=== PATIENT | male | born 1990 | race Caucasian/White ===

== ENCOUNTER 2018-09-29 20:04 | Inpatient (IN) | payer MEDICAID ==
--- NOTE | 2018-09-29 20:27 | ER Document Report ---
ED Medical Screen (RME) - General Chief Complaint: Rib Pain Stated Complaint: LUNG PAIN Time Seen by Provider: 09/29/18 20:18 Notes: Patient is a 27-year-old male history of pulmonary embolus on the left side presents to the emergency department with the pain in his right side of his chest. Patient states he recently drove from [place] to [place], states it was a [address] States he has had increased pain in the right lower chest for the last couple of days. Patient states "this feels just like when I had a PE." Patient's pulse oxygenation is noted to be 93% on room air. GENERAL: Alert, interacts well. No acute distress. LUNGS: Clear to auscultation bilaterally, no wheezes, rales, or rhonchi. No respiratory distress. HEART: Regular rate and rhythm. No murmur I have greeted and performed a rapid initial assessment of this patient. A comprehensive ED assessment and evaluation of the patient, analysis of test results and completion of the medical decision making process will be conducted by additional ED providers. I have specifically instructed the patient or family members with the patient to immediately return to any nursing staff should anything change in the patient's condition or with their chief complaint. This medical record was dictated with voice recognizing software. There may be grammatical, syntax errors that are unintended. TRAVEL OUTSIDE OF THE [place] IN LAST 30 DAYS: No Physical Exam - Vital signs Vitals: Temp Pulse BP Pulse Ox 98.2 F 92 117/66 93 09/29/18 20:12 09/29/18 20:12 09/29/18 20:12 09/29/18 20:12 Course - Vital Signs Vital signs: Temp Pulse Resp BP Pulse Ox 98.2 F 92 117/66 93 09/29/18 20:12 09/29/18 20:12 09/29/18 20:12 09/29/18 20:12
--- NOTE | 2018-09-29 20:40 | EKG REPORT ---
SEVERITY:- ABNORMAL ECG - SINUS RHYTHM ABNORMAL T, CONSIDER ISCHEMIA, INFERIOR LEADS : Confirmed by: Iris Williamson 29-Sep-2018 20:39:53
[2018-09-29 20:52] LABS: ABSOLUTE BASOPHILS # (AUTO) 0.1 10^3/uL (0.0-0.2); ABSOLUTE EOSINOPHILS # (AUTO) 0.1 10^3/uL (0.0-0.6); ABSOLUTE LYMPHOCYTES (AUTO) 1.8 10^3/uL (0.5-4.7); ABSOLUTE MONOCYTES (AUTO) 1.2 10^3/uL (0.1-1.4); ABSOLUTE NEUT (AUTO) 7.5 10^3/uL (1.7-8.2); BASOPHILS % (AUTO) 0.5 % (0-2); EOSINOPHILS % (AUTO) 0.7 % (0-6); HEMATOCRIT 41.9 % (37.9-51.0); HEMOGLOBIN 14.4 g/dL (13.5-17.0); LYMPHOCYTES % (AUTO) 16.9 % (13-45); MEAN CORPUSCULAR HEMOGLOBIN 31.1 pg (27.0-33.4); MEAN CORPUSCULAR HGB CONC 34.3 g/dL (32.0-36.0); MEAN CORPUSCULAR VOLUME 91 fl (80-97); MONOCYTES % (AUTO) 11.7 % (3-13); PLATELET COUNT 227 10^3/uL (150-450); RED BLOOD COUNT 4.62 10^6/uL (4.35-5.55); RED CELL DISTRIBUTION WIDTH 13.2 % (11.5-14.0); SEGMENTED NEUTROPHILS % (AUTO) 70.2 % (42-78); TOTAL CELLS COUNTED % (AUTO) 100 %; WHITE BLOOD COUNT 10.7 10^3/uL (4.0-10.5)
[2018-09-29 21:04] LABS: INTERNATIONAL RATION (INR) 1.07; PROTHROMBIN TIME 13.9 SEC (11.4-15.4)
[2018-09-29 21:10] LABS: ALANINE AMINOTRANSFERASE 32 U/L (21-72); ALBUMIN 4.3 g/dL (3.5-5.0); ALKALINE PHOSPHATASE 60 U/L (38-126); ANION GAP 8 (5-19); ASPARTATE AMINO TRANSFERASE 26 U/L (17-59); BILIRUBIN,DIRECT 0.3 mg/dL (0.0-0.4); BILIRUBIN,TOTAL 0.8 mg/dL (0.2-1.3); BLOOD UREA NITROGEN 16 mg/dL (7-20); CALCIUM 9.2 mg/dL (8.4-10.2); CARBON DIOXIDE 26 mmol/L (22-30); CHLORIDE 103 mmol/L (98-107); GLUCOSE 92 mg/dL (75-110); POTASSIUM 4.1 mmol/L (3.6-5.0); TOTAL PROTEIN 7.4 g/dL (6.3-8.2)
--- NOTE | 2018-09-29 21:25 | RADIOLOGY REPORT (SQ) ---
EXAM DESCRIPTION: CT CHEST ANGIOGRAPHY WITHOUT THEN WITH IV CONTRAST COMPLETED DATE/TME: 09/29/2018 20:23 CLINICAL HISTORY: 27 years, Male, right chest pain, h/o PE This exam was performed according to our departmental dose-optimization program which includes automated exposure control, adjustment of the mA and/or kVp according to patient size and/or use of iterative reconstruction technique where applicable. FINDINGS: Pulmonary arteries are mildly limited and opacification. There is a large filling defect in the right main pulmonary artery filling defects extend into the right lower lobe pulmonary arterial tree. Aorta is within normal limits with no aneurysm or dissection. No significant mediastinal, hilar or axillary lymphadenopathy. No pleural or pericardial effusions. Visualized upper abdominal organs are within normal limits. Evaluation of the lung parenchyma demonstrates trachea and major airways to be patent. Right lower lobe airspace disease consistent with probable infarct. No fibrotic changes. IMPRESSION: Extensive right-sided pulmonary arterial acute embolism. Probable right lower lobe infarct.
--- NOTE | 2018-09-29 21:47 | ER Document Report ---
ED Respiratory Problem - General Chief Complaint: Rib Pain Stated Complaint: LUNG PAIN Time Seen by Provider: 09/29/18 20:18 Notes: Patient is a 27-year-old male that comes emergency department for chief complaint of shortness of breath and pain along the right side of his chest and ribs. He started feeling the pain yesterday, started becoming notably short of breath today. He states pain is worse with deep inspiration. He does have a history of pulmonary embolism 2 years ago, was on Coumadin for 6 months, he is visiting from [place]. He recently drove down from [place], approximately [address] He smokes cigarettes and marijuana, reports occasional alcohol, denies occasional drugs otherwise. Denies medical history otherwise. States previous blood clot was from a DVT in his left calf, although the cause of this was uncertain. TRAVEL OUTSIDE OF THE [place] IN LAST 30 DAYS: No - Related Data Allergies/Adverse Reactions: No Known Allergies Allergy (Unverified 09/29/18 20:42) Past Medical History - General Information source: Patient - Social History Smoking Status: Current Every Day Smoker Chew tobacco use (# tins/day): No Frequency of alcohol use: Heavy Drug Abuse: Marijuana Lives with: Family Family History: Reviewed & Not Pertinent Patient has suicidal ideation: No Patient has homicidal ideation: No Renal/ Medical History: Denies: Hx Peritoneal Dialysis Review of Systems - Review of Systems Constitutional: No symptoms reported EENT: No symptoms reported Cardiovascular: No symptoms reported Respiratory: See HPI Gastrointestinal: No symptoms reported Genitourinary: No symptoms reported Male Genitourinary: No symptoms reported Musculoskeletal: No symptoms reported Skin: No symptoms reported Hematologic/Lymphatic: No symptoms reported Neurological/Psychological: No symptoms reported Physical Exam - Vital signs Vitals: Temp Pulse BP Pulse Ox 98.2 F 92 117/66 93 09/29/18 20:12 09/29/18 20:12 09/29/18 20:12 09/29/18 20:12 - Notes Notes: GENERAL: Alert, interacts well. HEAD: Normocephalic, atraumatic. EYES: Pupils equal, round, and reactive to light. Extraocular movements intact. ENT: Oral mucosa moist, tongue midline. Oropharynx unremarkable. Airway patent. LUNGS: Clear to auscultation bilaterally, no wheezes, rales, or rhonchi. No respiratory distress. Pain with deep inspiration. HEART: Mildly tachycardic on my exam, normal rhythm, no murmur ABDOMEN: Soft, non-tender. Non-distended. EXTREMITIES: Moves all 4 extremities spontaneously. No edema, normal radial and dorsalis pedis pulses bilaterally. No cyanosis. BACK: no cervical, thoracic, lumbar midline tenderness. No saddle anesthesia, normal distal neurovascular exam. Moves all extremities in full range of motion. NEUROLOGICAL: Alert and oriented x3. Normal speech. Cranial nerves II through XII grossly intact. PSYCH: Normal affect, normal mood. SKIN: Warm, dry, normal turgor. No rashes or lesions noted. Course - Re-evaluation Re-evalutation: Patient sitting up very straight, however he does not have tachypnea or signs of distress. Initial pulse oxygen saturation was 93% on room air. He is mildly tachycardic on my exam. He was placed on the monitor, he is no longer hypoxic sitting at rest. CBC, chemistry, troponin unremarkable. CT of the chest shows extensive right- sided pulmonary embolism with probable associated infarct area. Starting Lovenox. Patient has a lot of symptoms with exertion but is comfortable at [facility]. Patient is from out of town and has no local follow-up. Because of his hypoxia with exertion, the extensive clot, and lack of follow-up will discuss with hospitalist for admission. Patient and mother state understanding and agreement. Discussed with Dr. Aldrich, hospitalist, patient will be admitted to telemetry. - Vital Signs Vital signs: Temp Pulse Resp BP Pulse Ox 98.4 F 70 17 120/81 97 09/29/18 23:52 09/30/18 02:00 09/29/18 23:52 09/29/18 23:52 09/29/18 23:52 - Laboratory Result Diagrams: 09/29/18 20:46 09/30/18 05:17 Laboratory results interpreted by me: 09/29/18 20:46 WBC 10.7 H - EKG Interpretation by Me Additional EKG results interpreted by me: EKG shows sinus rhythm at a rate of 85, QTC of 424, MO interval of 144. Normal axis. Inverted T wave in lead III, borderline T wave in aVF. Otherwise unremarkable EKG with no ST segment changes. No comparison available. Some artifact is present. Discharge - Discharge Clinical Impression: Shortness of breath, Hypoxia Pulmonary embolism Qualifiers: Pulmonary embolism type: other Chronicity: acute Acute cor pulmonale presence: without acute cor pulmonale Qualified Code(s): I26.99 - Other pulmonary embolism without acute cor pulmonale Condition: Stable Disposition: ADMITTED INPATIENT Admitting Provider: Valdemar (Hospitalist) Unit Admitted: Telemetry
[2018-09-29] MEDS ORDERED: ENOXAPARIN SODIUM INJ 80 MG/0.8 ML DISP.SYRIN SUBCUT SCH (22:00)
[2018-09-29] MEDS ORDERED: ZOLPIDEM TARTRATE 5 MG TABLET PO PRN (23:01)
[2018-09-29] MEDS ORDERED: MAG HYDROX/AL HYDROX/SIMETH SUSP 30 ML UDCUP PO PRN (23:01)
[2018-09-29] MEDS ORDERED: ONDANSETRON HCL INJ/PF 4 MG/2 ML SDV IV PRN (23:01)
[2018-09-29 23:51] LABS: FREE T3 3.88 pg/mL (2.77-5.27); FREE T4 (FREE THYROXINE) 1.35 ng/dL (0.78-2.19)
[2018-09-30 00:05] LABS: THYROID STIMULATING HORMONE 1.05 uIU/mL (0.47-4.68)
[2018-09-30] MEDS ORDERED: HYDRALAZINE HCL INJ/PF 20 MG/1 ML SDV IV PRN (00:30)
[2018-09-30] MEDS ORDERED: NICOTINE 21 MG/24 HR PATCH.TD24 TD PRN (00:30)
[2018-09-30] MEDS ORDERED: WARFARIN SODIUM 5 MG TABLET PO ONE (00:30)
[2018-09-30] MEDS ORDERED: ACETAMINOPHEN 325 MG TABLET PO PRN (00:30)
--- NOTE | 2018-09-30 00:30 | PDOC H&P ---
History of Present Illness Admission Date/PCP: 09/29/2018 22:26 No local PCP Patient complains of: Dyspnea History of Present Illness: EUNICE GILLESPIE is a 27 year old male who presented to the emergency room with a 1 day history of dyspnea. He admits dyspnea beginning yesterday and worsening today. The dyspnea is worsened by exertion and is associated with the development of a constant moderate to severe, sharp, right lateral ribs and costal margin area chest pain without radiation, that is worsened by inspiration. He denies other associated or accompanying symptoms. He admits a recent long car trip, to this area, on which he drove 9 consecutive hours and smoked heavily. He admits a prior similar episode when he had a pulmonary embolism 2 years ago. He denies identification of any other aggravating or ameliorating factors for his dyspnea. In the emergency room he was found to have a CTA of the chest showing a large right-sided pulmonary embolus. Patient has been hemodynamically stable throughout his ER course but, his O2 sat does fall from 98% to 93-94% with modest activity. Patient was subsequently admitted for further evaluation and treatment. Past Medical History Cardiac Medical History: Reports: Pulmonary Embolism Denies: Atrial Fibrillation, Coronary Artery Disease, Myocardial Infarction, Hyperlipidema, Hypertension, Peripheral Vascular Disease Pulmonary Medical History: Denies: Asthma, Chronic Obstructive Pulmonary Disease (COPD), Respiratory Failure EENT Medical History: Denies: Cataracts, Ears - Hearing aids Neurological Medical History: Denies: Hemorrhagic CVA, Ischemic CVA, Multiple Sclerosis, Seizures Endocrine Medical History: Denies: Diabetes Mellitus Type 1, Diabetes Mellitus Type 2, Hyperthyroidism, Hypothyroidism, Obesity Renal/ Medical History: Denies: Chronic Kidney Disease, Nephrolithiasis Malignancy Medical History: Reports: None GI Medical History: Denies: Cirrhosis, Crohn's Disease, Hepatitis, Ulcerative Colitis Musculoskeltal Medical History: Denies: Arthritis, Gout Skin Medical History: Denies: Eczema, Psoriasis Psychiatric Medical History: Reports: Alcohol Dependency, Substance Abuse, Tobacco Dependency Traumatic Medical History: Reports: None Hematology: Denies: Anemia, Bleeding Tendencies Infectious Medical History: Reports: None Past Surgical History Past Surgical History: Reports: None Social History Information Source: Patient Lives with: Other - In town visiting his mother. Smoking Status: Current Every Day Smoker Cigarettes Packs Per Day: 1 Last Time Smoked: today Frequency of Alcohol Use: Heavy - Was drinking 6-8 beers per night until 1 week ago when he quit drinking altogether. Hx Recreational Drug Use: Yes Drugs: Marijuana Hx Prescription Drug Abuse: No - Advance Directive Resuscitation Status: Full Code Surrogate healthcare decision maker:: Isa Gillespie Family History Family History: Hypertension, Malignancy. denies: CAD, DM Parental Family History Reviewed: Yes Children Family History Reviewed: No Sibling(s) Family History Reviewed.: Yes Medication/Allergy Allergies/Adverse Reactions: No Known Allergies Allergy (Unverified 09/29/18 20:42) Review of Systems Constitutional: ABSENT: chills, fever(s) Eyes: ABSENT: visual disturbances, other - Eye pain Ears: ABSENT: hearing changes, other - Ear pain Nose, Mouth, and Throat: ABSENT: mouth pain, sore throat Cardiovascular: PRESENT: as per HPI, chest pain, dyspnea on exertion. ABSENT: edema, orthropnea, palpitations Respiratory: PRESENT: as per HPI, dyspnea. ABSENT: cough, hemoptysis Gastrointestinal: ABSENT: abdominal pain, constipation, diarrhea, nausea, vomiting Genitourinary: ABSENT: dysuria, hematuria Musculoskeletal: ABSENT: back pain, joint swelling, muscle weakness Integumentary: ABSENT: pruritus, rash Neurological: ABSENT: confusion, convulsions, focal weakness, memory loss, syncope Psychiatric: ABSENT: anxiety, depression Endocrine: ABSENT: cold intolerance, heat intolerance Hematologic/Lymphatic: ABSENT: easy bleeding, easy bruising Physical Exam Vital Signs: Temp Pulse Resp BP Pulse Ox 98.2 F 74 18 117/66 98 09/29/18 20:12 09/29/18 21:49 09/29/18 21:49 09/29/18 20:12 09/29/18 21:49 Intake & Output 09/27/18 09/28/18 09/29/18 23:59 23:59 23:59 Weight 81.647 kg General appearance: PRESENT: cooperative, severe distress - Secondary to right chest pain, well-developed Head exam: PRESENT: atraumatic, normocephalic Eye exam: PRESENT: conjunctiva pink. ABSENT: conjunctival injection, scleral icterus Ear exam: PRESENT: normal external ear exam. ABSENT: bleeding, drainage Mouth exam: PRESENT: dry mucosa, neck supple Neck exam: ABSENT: JVD, thyromegaly, tracheal deviation Respiratory exam: PRESENT: clear to auscultation malou, symmetrical, unlabored Cardiovascular exam: PRESENT: clicks, gallop, RRR, rubs Pulses: PRESENT: normal radial pulses, normal dorsalis pedis pul Vascular exam: PRESENT: normal capillary refill. ABSENT: pallor GI/Abdominal exam: PRESENT: normal bowel sounds, soft Rectal exam: PRESENT: deferred Extremities exam: ABSENT: joint swelling, pedal edema Musculoskeletal exam: PRESENT: full ROM, normal inspection. ABSENT: tenderness Neurological exam: PRESENT: alert, oriented to person, oriented to place, oriented to time, oriented to situation, CN II-XII grossly intact. ABSENT: motor sensory deficit Psychiatric exam: PRESENT: appropriate affect, normal mood Skin exam: PRESENT: dry, intact, warm. ABSENT: jaundice, rash, urticaria Results Laboratory Results: 09/29/18 20:46 09/29/18 20:46 09/29/18 09/29/18 20:46 20:46 WBC 10.7 H RBC 4.62 Hgb 14.4 Hct 41.9 MCV 91 MCH 31.1 MCHC 34.3 RDW 13.2 Plt Count 227 Seg Neutrophils % 70.2 Lymphocytes % 16.9 Monocytes % 11.7 Eosinophils % 0.7 Basophils % 0.5 Absolute Neutrophils 7.5 Absolute Lymphocytes 1.8 Absolute Monocytes 1.2 Absolute Eosinophils 0.1 Absolute Basophils 0.1 Sodium 137.0 Potassium 4.1 Chloride 103 Carbon Dioxide 26 Anion Gap 8 BUN 16 Creatinine 0.75 Est GFR ( Amer) > 60 Est GFR (Non-Af Amer) > 60 Glucose 92 Calcium 9.2 Total Bilirubin 0.8 AST 26 ALT 32 Alkaline Phosphatase 60 Total Protein 7.4 Albumin 4.3 09/29/18 20:46 Troponin I < 0.012 Impressions: Chest/Abdomen CTA 09/29/18 20:23 IMPRESSION: Extensive right-sided pulmonary arterial acute embolism. Probable right lower lobe infarct. Assessment and Plan - Diagnosis (1) Acute pulmonary embolism without acute cor pulmonale Qualifiers: Pulmonary embolism type: unspecified Qualified Code(s): I26.99 - Other pulmonary embolism without acute cor pulmonale Is this a current diagnosis for this admission?: Yes Plan: Patient is admitted to initiate anticoagulant therapy. He will receive Lovenox 85 mg subcutaneously every 12 hours and will be started on warfarin with daily laboratory evaluations of the patient's INR. The chest pain associated with his pulmonary embolism will be treated with morphine sulfate 2 to 4 mg IV every 2 h ours PRN basis via sliding scale. (2) Hypoxia Is this a current diagnosis for this admission?: Yes Plan: Patient will be treated with supplemental oxygen as required to maintain an adequate oxygenation saturation level. (3) Tobacco use disorder, severe, dependence Is this a current diagnosis for this admission?: Yes Plan: Smoking cessation has been advised and counseled briefly. A nicotine patch will be available for the patient's use. (4) Alcohol use disorder, mild, abuse Is this a current diagnosis for this admission?: Yes Plan: Alcohol use cessation has been advised. Patient will be observed closely for any signs of alcohol withdrawal. He will be treated prophylactically with Va lium 5 mg orally every 8 hours for the first 3 days of his hospital course. - Time Time Spent with patient: 25-34 minutes Smoking Cessation Education: 3 to 10 minutes Medications reviewed and adjusted accordingly: No - No medications Anticipated discharge: Home - Inpatient Certification Based on my medical assessment, after consideration of the patient's c omorbidities, presenting symptoms, or acuity I expect that the services needed warrant INPATIENT care.: Yes I certify that my determination is in accordance with my understanding of Medicare's requirements for reasonable and necessary INPATIENT services [42 CFR 412.3e].: Yes Medical Necessity: Need Close Monitoring Due to Risk of Patient Decompensation, Risk of Complication if Not Cared For in Hospital
[2018-09-30] MEDS ORDERED: DIAZEPAM 5 MG TABLET PO PRN (00:32)
[2018-09-30] MEDS: NALBUPHINE HCL INJ 10 MG/1 ML AMPULE IV PRN ×6 (00:43→23:49)
--- NOTE | 2018-09-30 00:44 | ADVANCED CARE ---
- Diagnosis (1) Acute pulmonary embolism without acute cor pulmonale Diagnosis Current: Yes (2) Hypoxia Diagnosis Current: Yes (3) Tobacco use disorder, severe, dependence Diagnosis Current: Yes (4) Alcohol use disorder, mild, abuse Diagnosis Current: Yes Attendance: The patient and myself. Resuscitation Status: Full Code Discussion: After brief discussion patient indicated that he wishes to remain full code for resuscitation status during this hospitalization. Additionally he has named Isa Huizar as his designated surrogate medical decision-maker. Care Planning Goals: 1. Patient will be full CODE STATUS for the remainder of this admission. 2. Isa Huizar is a patient's designated surrogate medical decision-maker. Document(s) Completed: The following entries were made into the patient's permanent medical record, current medical record and current medical orders via EMR entry: 1. Patient will be full CODE STATUS for the remainder of this admission. 2. Isa Huizar is a patient's designated surrogate medical decision-maker. Time Spent: 4 minutes
[2018-09-30] MEDS: IBUPROFEN 800 MG TABLET PO PRN ×4 (01:01→23:49)
[2018-09-30 06:01] LABS: HEMATOCRIT 39.8 % (37.9-51.0); HEMOGLOBIN 13.6 g/dL (13.5-17.0); MEAN CORPUSCULAR HEMOGLOBIN 31.5 pg (27.0-33.4); MEAN CORPUSCULAR HGB CONC 34.1 g/dL (32.0-36.0); MEAN CORPUSCULAR VOLUME 92 fl (80-97); PLATELET COUNT 200 10^3/uL (150-450); RED BLOOD COUNT 4.32 10^6/uL (4.35-5.55); WHITE BLOOD COUNT 9.3 10^3/uL (4.0-10.5)
[2018-09-30 06:09] LABS: INTERNATIONAL RATION (INR) 1.07; PROTHROMBIN TIME 13.9 SEC (11.4-15.4)
[2018-09-30 06:10] LABS: PARTIAL THROMBOPLASTIN TIME 36.1 SEC (23.5-35.8)
[2018-09-30 06:19] LABS: ANION GAP 7 (5-19); BLOOD UREA NITROGEN 16 mg/dL (7-20); CALCIUM 9.2 mg/dL (8.4-10.2); CARBON DIOXIDE 28 mmol/L (22-30); CHLORIDE 105 mmol/L (98-107); GLUCOSE 93 mg/dL (75-110); POTASSIUM 4.1 mmol/L (3.6-5.0)
[2018-09-30] MEDS: DOCUSATE SODIUM 100 MG CAPSULE PO SCH ×2 (10:30→17:15)
[2018-09-30] MEDS: ENOXAPARIN SODIUM INJ 80 MG/0.8 ML DISP.SYRIN SUBCUT SCH ×2 (10:30→21:04)
[2018-09-30] MEDS: FAMOTIDINE 20 MG TABLET PO SCH ×2 (10:30→21:04)
--- NOTE | 2018-09-30 11:11 | Progress Note Acknowledgement ---
Progress Note Acknowledgement Progess Note Acknowledgement: I, the undersigned member of the medical staff with appropriate privileges and with supervisory authority over [ [facility] a [facility] practice allied health professional, acknowledge that I have reviewed the progress notes entered on this patient, and in my professional judgment believe that the assessment made and/or any care evidenced was appropriate
--- NOTE | 2018-09-30 11:16 | PDOC PROGRESS REPORT ---
Subjective Progress Note for:: 09/30/18 Subjective:: 09/30/2018 patient is feeling much less short of breath than on admission. Patient states he is able to talk in full sentences. Patient is complaining of some right-sided chest wall pain. Patient was on Coumadin a couple years ago for previous PE. Patient has had 1 dose of Nubain and 1 dose of Motrin for his right-sided chest wall pain. Patient appears to be medically stable. Reason For Visit: ACUTE PULMONARY EMBOLISM Physical Exam Vital Signs: Temp Pulse Resp BP Pulse Ox 97.6 F 68 16 113/82 97 09/30/18 07:26 09/30/18 07:26 09/30/18 07:26 09/30/18 07:26 09/30/18 07:26 Intake & Output 09/29/18 09/30/18 10/01/18 06:59 06:59 06:59 Intake Total 430 Output Total 0 Balance 430 Weight 81.2 kg General appearance: PRESENT: no acute distress, well-developed, well-nourished Head exam: PRESENT: atraumatic, normocephalic Respiratory exam: PRESENT: clear to auscultation malou, other - Decreased breath sounds right middle lobe and right lower lobe. ABSENT: rales, rhonchi, wheezes Cardiovascular exam: PRESENT: RRR. ABSENT: diastolic murmur, rubs, systolic murmur Neurological exam: PRESENT: alert, awake, oriented to person, oriented to place, oriented to time, oriented to situation, CN II-XII grossly intact. ABSENT: motor sensory deficit Psychiatric exam: PRESENT: appropriate affect, normal mood, other - Pleasant. ABSENT: homicidal ideation, suicidal ideation Results Laboratory Results: 09/30/18 05:17 09/30/18 05:17 09/29/18 09/29/18 09/29/18 20:46 20:46 20:46 WBC 10.7 H RBC 4.62 Hgb 14.4 Hct 41.9 MCV 91 MCH 31.1 MCHC 34.3 RDW 13.2 Plt Count 227 Seg Neutrophils % 70.2 Lymphocytes % 16.9 Monocytes % 11.7 Eosinophils % 0.7 Basophils % 0.5 Absolute Neutrophils 7.5 Absolute Lymphocytes 1.8 Absolute Monocytes 1.2 Absolute Eosinophils 0.1 Absolute Basophils 0.1 Sodium 137.0 Potassium 4.1 Chloride 103 Carbon Dioxide 26 Anion Gap 8 BUN 16 Creatinine 0.75 Est GFR ( Amer) > 60 Est GFR (Non-Af Amer) > 60 Glucose 92 Calcium 9.2 Magnesium Total Bilirubin 0.8 AST 26 ALT 32 Alkaline Phosphatase 60 Total Protein 7.4 Albumin 4.3 TSH 1.05 Free T4 1.35 Free T3 pg/mL 3.88 09/30/18 09/30/18 05:17 05:17 WBC 9.3 RBC 4.32 L Hgb 13.6 Hct 39.8 MCV 92 MCH 31.5 MCHC 34.1 RDW 13.0 Plt Count 200 Seg Neutrophils % Lymphocytes % Monocytes % Eosinophils % Basophils % Absolute Neutrophils Absolute Lymphocytes Absolute Monocytes Absolute Eosinophils Absolute Basophils Sodium 139.8 Potassium 4.1 Chloride 105 Carbon Dioxide 28 Anion Gap 7 BUN 16 Creatinine 0.74 Est GFR ( Amer) > 60 Est GFR (Non-Af Amer) > 60 Glucose 93 Calcium 9.2 Magnesium 2.5 H Total Bilirubin AST ALT Alkaline Phosphatase Total Protein Albumin TSH Free T4 Free T3 pg/mL 09/29/18 20:46 Troponin I < 0.012 Impressions: Chest/Abdomen CTA 09/29/18 20:23 IMPRESSION: Extensive right-sided pulmonary arterial acute embolism. Probable right lower lobe infarct. Assessment and Plan - Diagnosis (1) Acute pulmonary embolism without acute cor pulmonale Qualifiers: Pulmonary embolism type: unspecified Qualified Code(s): I26.99 - Other pulmonary embolism without acute cor pulmonale Is this a current diagnosis for this admission?: Yes Plan: Patient is admitted to initiate anticoagulant therapy. He will receive Lovenox 85 mg subcutaneously every 12 hours and will be started on warfarin with daily laboratory evaluations of the patient's INR. The chest pain associated with his pulmonary embolism will be treated with morphine sulfate 2 to 4 mg IV every 2 hours PRN basis via sliding scale. 09/30/2018 patient is being treated with both Lovenox and Coumadin INR was subtherapeutic this morning patient is currently on 5 mg nightly Patient has no complaints at this time (2) Alcohol use disorder, mild, abuse Is this a current diagnosis for this admission?: Yes Plan: Alcohol use cessation has been advised. Patient will be observed closely for any signs of alcohol withdrawal. He will be treated prophylactically with Valium 5 mg orally every 8 hours for the first 3 days of his hospital course. 09/30/2018 patient has no complaints no nausea no vomiting no tremors no headache (3) Tobacco use disorder, severe, dependence Is this a current diagnosis for this admission?: Yes Plan: Smoking cessation has been advised and counseled briefly. A nicotine patch will be available for the patient's use. 09/30/2018 She did not complain of nicotine withdrawals. - Time Time Spent with patient: 15-24 minutes
[2018-09-30] MEDS ORDERED: WARFARIN SODIUM 5 MG TABLET PO SCH (22:00)
[2018-10-01] MEDS: NALBUPHINE HCL INJ 10 MG/1 ML AMPULE IV PRN ×5 (04:06→20:59)
[2018-10-01 04:57] LABS: HEMATOCRIT 39.1 % (37.9-51.0); HEMOGLOBIN 13.1 g/dL (13.5-17.0); MEAN CORPUSCULAR HEMOGLOBIN 31.4 pg (27.0-33.4); MEAN CORPUSCULAR HGB CONC 33.6 g/dL (32.0-36.0); MEAN CORPUSCULAR VOLUME 94 fl (80-97); PLATELET COUNT 235 10^3/uL (150-450); RED BLOOD COUNT 4.18 10^6/uL (4.35-5.55); WHITE BLOOD COUNT 8.6 10^3/uL (4.0-10.5)
[2018-10-01 05:11] LABS: INTERNATIONAL RATION (INR) 1.16; PROTHROMBIN TIME 14.9 SEC (11.4-15.4)
[2018-10-01 05:17] LABS: ANION GAP 9 (5-19); BLOOD UREA NITROGEN 15 mg/dL (7-20); CALCIUM 9.1 mg/dL (8.4-10.2); CARBON DIOXIDE 29 mmol/L (22-30); CHLORIDE 103 mmol/L (98-107); GLUCOSE 116 mg/dL (75-110); POTASSIUM 4.3 mmol/L (3.6-5.0)
[2018-10-01] MEDS: IBUPROFEN 800 MG TABLET PO PRN ×2 (07:29→13:32)
[2018-10-01] MEDS: FAMOTIDINE 20 MG TABLET PO SCH ×2 (09:09→21:00)
[2018-10-01] MEDS: ENOXAPARIN SODIUM INJ 80 MG/0.8 ML DISP.SYRIN SUBCUT SCH ×2 (09:09→21:00)
[2018-10-01] MEDS: DOCUSATE SODIUM 100 MG CAPSULE PO SCH ×2 (09:09→16:45)
[2018-10-01 11:01] LABS: APPEARANCE,URINE CLEAR; BILIRUBIN,URINE NEGATIVE (NEGATIVE); COLOR,URINE YELLOW; GLUCOSE, URINE NEGATIVE (NEGATIVE); KETONES,URINE NEGATIVE (NEGATIVE); LEUKOCYTE ESTERASE,URINE NEGATIVE (NEGATIVE); NITRITE,URINE NEGATIVE (NEGATIVE); PROTEIN,URINE NEGATIVE (NEGATIVE); UROBILINOGEN,URINE NEGATIVE mg/dL (<2.0)
--- NOTE | 2018-10-01 13:58 | Progress Note Acknowledgement ---
Progress Note Acknowledgement Progess Note Acknowledgement: I, the undersigned member of the medical staff with appropriate privileges and with supervisory authority over [ [facility] ], a dependent practice allied health professional, acknowledge that I have reviewed the progress notes entered on this patient, and in my professional judgment believe that the assessment made and/or any care evidenced was appropriate
[2018-10-01] MEDS: CYCLOBENZAPRINE HCL 10 MG TABLET PO PRN ×2 (14:49→23:08)
[2018-10-01] MEDS: KETOROLAC TROMETHAMINE INJ/PF 30 MG/1 ML SDV IV PRN ×2 (14:49→23:08)
[2018-10-01] MEDS: WARFARIN SODIUM 7.5 MG TABLET PO SCH (21:00)
[2018-10-02] MEDS: NALBUPHINE HCL INJ 10 MG/1 ML AMPULE IV PRN ×5 (03:11→21:14)
[2018-10-02 05:15] LABS: HEMOGLOBIN 13.1 g/dL (13.5-17.0); MEAN CORPUSCULAR HEMOGLOBIN 31.2 pg (27.0-33.4); MEAN CORPUSCULAR HGB CONC 33.7 g/dL (32.0-36.0); MEAN CORPUSCULAR VOLUME 92 fl (80-97); PLATELET COUNT 223 10^3/uL (150-450); RED BLOOD COUNT 4.22 10^6/uL (4.35-5.55); RED CELL DISTRIBUTION WIDTH 12.9 % (11.5-14.0); WHITE BLOOD COUNT 11.3 10^3/uL (4.0-10.5)
[2018-10-02 05:23] LABS: INTERNATIONAL RATION (INR) 1.27
[2018-10-02 05:24] LABS: PARTIAL THROMBOPLASTIN TIME 43.8 SEC (23.5-35.8)
[2018-10-02 05:44] LABS: ANION GAP 11 (5-19); BLOOD UREA NITROGEN 16 mg/dL (7-20); CALCIUM 9.2 mg/dL (8.4-10.2); CARBON DIOXIDE 26 mmol/L (22-30); CHLORIDE 102 mmol/L (98-107); GLUCOSE 97 mg/dL (75-110); POTASSIUM 4.4 mmol/L (3.6-5.0)
[2018-10-02] MEDS: KETOROLAC TROMETHAMINE INJ/PF 30 MG/1 ML SDV IV PRN ×2 (08:11→16:41)
[2018-10-02] MEDS: CYCLOBENZAPRINE HCL 10 MG TABLET PO PRN ×2 (08:11→16:41)
[2018-10-02] MEDS: FAMOTIDINE 20 MG TABLET PO SCH ×2 (09:17→21:06)
[2018-10-02] MEDS: DOCUSATE SODIUM 100 MG CAPSULE PO SCH ×2 (09:17→17:44)
[2018-10-02] MEDS: ENOXAPARIN SODIUM INJ 80 MG/0.8 ML DISP.SYRIN SUBCUT SCH ×2 (09:17→21:06)
[2018-10-02 13:18] LABS: INTERNATIONAL RATION (INR) 1.38
[2018-10-02] MEDS: MAGNESIUM HYDROXIDE SUSP 30 ML UDCUP PO PRN (17:44)
[2018-10-02] MEDS: WARFARIN SODIUM 7.5 MG TABLET PO SCH (21:05)
[2018-10-03] MEDS: CYCLOBENZAPRINE HCL 10 MG TABLET PO PRN ×2 (00:56→18:36)
[2018-10-03] MEDS: KETOROLAC TROMETHAMINE INJ/PF 30 MG/1 ML SDV IV PRN ×3 (00:57→18:21)
[2018-10-03] MEDS: NALBUPHINE HCL INJ 10 MG/1 ML AMPULE IV PRN ×5 (00:57→21:55)
[2018-10-03] MEDS: DOCUSATE SODIUM 100 MG CAPSULE PO SCH ×2 (09:03→18:21)
[2018-10-03] MEDS: MAGNESIUM HYDROXIDE SUSP 30 ML UDCUP PO PRN (09:04)
[2018-10-03] MEDS: ENOXAPARIN SODIUM INJ 80 MG/0.8 ML DISP.SYRIN SUBCUT SCH ×2 (09:04→21:04)
[2018-10-03] MEDS: FAMOTIDINE 20 MG TABLET PO SCH ×2 (09:04→21:05)
--- NOTE | 2018-10-03 13:18 | PDOC PROGRESS REPORT ---
Subjective Progress Note for:: 10/03/18 Subjective:: 09/30/2018 patient is feeling much less short of breath than on admission. Patient states he is able to talk in full sentences. Patient is complaining of some right-sided chest wall pain. Patient was on Coumadin a couple years ago for previous PE. Patient has had 1 dose of Nubain and 1 dose of Motrin for his right-sided chest wall pain. Patient appears to be medically stable. 10/01/2018 Patient is complaining of chest wall pain with inspiration expiration or movement this is all right-sided. Patient does not appear to be hypoxic and in fact O2 sats are 99 on room air blood pressure is normal, labs are normal. Patient is currently being treated with Lovenox and Coumadin graft I have added Flexeril for the muscle spasm and tightness of his chest wall, Toradol as needed for the pain DC the Motrin. As soon is patient's INR starts to increase we will discuss discharge 10/02/2018 patient is feeling much better today less chest wall pain less muscle spasm. INR is going up to 1.27 he is at 7.5 mg nightly Coumadin otherwise labs are stable patient is eating well, vital signs are stable anticipate discharge in the next 1 to 2 days 10/03/2018 she has no complaints yesterday's INR was up to 1.38 today after just calling the lab it is pending. If it still low tonight and when giving Coumadin 10 mg. Toradol and Flexeril are helping his pain he plans to go back to [place] will be discharging him and be seen by his regular doctor within the next 48 hours of arrival. No shortness of breath no chest pain Reason For Visit: ACUTE PULMONARY EMBOLISM Physical Exam Vital Signs: Temp Pulse Resp BP Pulse Ox 98.9 F 75 16 119/71 96 10/03/18 07:29 10/03/18 07:29 10/03/18 07:29 10/03/18 07:29 10/03/18 07:29 Intake & Output 10/02/18 10/03/18 10/04/18 06:59 06:59 06:59 Intake Total 596 Balance 596 Weight 80.3 kg 81 kg General appearance: PRESENT: no acute distress, well-developed, well-nourished Respiratory exam: PRESENT: clear to auscultation malou. ABSENT: rales, rhonchi, wheezes Cardiovascular exam: PRESENT: RRR. ABSENT: diastolic murmur, rubs, systolic murmur GI/Abdominal exam: PRESENT: normal bowel sounds, soft. ABSENT: distended, guarding, mass, organolmegaly, rebound, tenderness Extremities exam: PRESENT: full ROM. ABSENT: calf tenderness, clubbing, pedal edema Neurological exam: PRESENT: alert, awake, oriented to person, oriented to place, oriented to time, oriented to situation, CN II-XII grossly intact. ABSENT: motor sensory deficit Psychiatric exam: PRESENT: appropriate affect, normal mood. ABSENT: homicidal ideation, suicidal ideation Results Laboratory Results: 10/02/18 04:36 10/02/18 04:36 09/29/18 20:46 Troponin I < 0.012 Impressions: Chest/Abdomen CTA 09/29/18 20:23 IMPRESSION: Extensive right-sided pulmonary arterial acute embolism. Probable right lower lobe infarct. Assessment and Plan - Diagnosis (1) Acute pulmonary embolism without acute cor pulmonale Qualifiers: Pulmonary embolism type: unspecified Qualified Code(s): I26.99 - Other pulmonary embolism without acute cor pulmonale Is this a current diagnosis for this admission?: Yes Plan: Patient is admitted to initiate anticoagulant therapy. He will receive Lovenox 85 mg subcutaneously every 12 hours and will be started on warfarin with daily laboratory evaluations of the patient's INR. The chest pain associated with his pulmonary embolism will be treated with morphine sulfate 2 to 4 mg IV every 2 hours PRN basis via sliding scale. 09/30/2018 patient is being treated with both Lovenox and Coumadin INR was subtherapeutic this morning patient is currently on 5 mg nightly Patient has no complaints at this time 10/01/2018 patient is on Lovenox and Coumadin, PT/INR PTT are checked daily. 10/02/2018 patient's Coumadin was increased yesterday to 7.5 mg daily, INR today is 1.27. 10/03/2018 if INR is still low today we will increase to 10 mg of Coumadin. Chest pain is better with Toradol and Flexeril patient does have some hemoptysis (2) Alcohol use disorder, mild, abuse Is this a current diagnosis for this admission?: No (3) Tobacco use disorder, severe, dependence Is this a current diagnosis for this admission?: Yes Plan: Smoking cessation has been advised and counseled briefly. A nicotine patch will be available for the patient's use. 09/30/2018 he did not complain of nicotine withdrawal. 10/01/2018 patient has not asked for NicoDerm patch or to go outside and smoke 10/03/2018. Patient is on NicoDerm patch now - Time Time Spent with patient: 15-24 minutes
[2018-10-03 13:21] LABS: INTERNATIONAL RATION (INR) 1.46; PROTHROMBIN TIME 17.8 SEC (11.4-15.4)
[2018-10-03] MEDS ORDERED: WARFARIN SODIUM 3 MG TABLET PO SCH (22:00)
[2018-10-04] MEDS: NALBUPHINE HCL INJ 10 MG/1 ML AMPULE IV PRN ×2 (02:47→09:13)
[2018-10-04] MEDS: KETOROLAC TROMETHAMINE INJ/PF 30 MG/1 ML SDV IV PRN (02:47)
[2018-10-04] MEDS: CYCLOBENZAPRINE HCL 10 MG TABLET PO PRN (02:48)
[2018-10-04 05:46] LABS: INTERNATIONAL RATION (INR) 1.58
[2018-10-04 06:43] LABS: APPEARANCE,URINE CLEAR; BILIRUBIN,URINE NEGATIVE (NEGATIVE); COLOR,URINE YELLOW; GLUCOSE, URINE NEGATIVE (NEGATIVE); KETONES,URINE NEGATIVE (NEGATIVE); LEUKOCYTE ESTERASE,URINE NEGATIVE (NEGATIVE); NITRITE,URINE NEGATIVE (NEGATIVE); PROTEIN,URINE NEGATIVE (NEGATIVE); URINE SPECIFIC GRAVITY 1.015; UROBILINOGEN,URINE NEGATIVE mg/dL (<2.0)
--- NOTE | 2018-10-04 06:45 | PDOC PROGRESS REPORT ---
Subjective Progress Note for:: 10/02/18 Subjective:: 09/30/2018 patient is feeling much less short of breath than on admission. Patient states he is able to talk in full sentences. Patient is complaining of some right-sided chest wall pain. Patient was on Coumadin a couple years ago for previous PE. Patient has had 1 dose of Nubain and 1 dose of Motrin for his right-sided chest wall pain. Patient appears to be medically stable. 10/01/2018 Patient is complaining of chest wall pain with inspiration expiration or movement this is all right-sided. Patient does not appear to be hypoxic and in fact O2 sats are 99 on room air blood pressure is normal, labs are normal. Patient is currently being treated with Lovenox and Coumadin graft I have added Flexeril for the muscle spasm and tightness of his chest wall, Toradol as needed for the pain DC the Motrin. As soon is patient's INR starts to increase we will discuss discharge 10/02/2018 patient is feeling much better today less chest wall pain less muscle spasm. INR is going up to 1.27 he is at 7.5 mg nightly Coumadin otherwise labs are stable patient is eating well, vital signs are stable anticipate discharge in the next 1 to 2 days Reason For Visit: ACUTE PULMONARY EMBOLISM Physical Exam Vital Signs: Temp Pulse Resp BP Pulse Ox 99.4 F 93 16 121/74 98 10/02/18 07:20 10/02/18 07:20 10/02/18 07:20 10/02/18 07:20 10/02/18 07:20 Intake & Output 10/01/18 10/02/18 10/03/18 06:59 06:59 06:59 Intake Total 720 596 Balance 720 596 Weight 80.3 kg 80.3 kg General appearance: PRESENT: no acute distress, well-developed, well-nourished Respiratory exam: PRESENT: clear to auscultation malou. ABSENT: rales, rhonchi, wheezes Cardiovascular exam: PRESENT: RRR. ABSENT: diastolic murmur, rubs, systolic murmur Neurological exam: PRESENT: alert, awake, oriented to person, oriented to place, oriented to time, oriented to situation, CN II-XII grossly intact. ABSENT: motor sensory deficit Psychiatric exam: PRESENT: appropriate affect, normal mood. ABSENT: homicidal ideation, suicidal ideation Results Laboratory Results: 10/02/18 04:36 10/02/18 04:36 10/02/18 10/02/18 04:36 04:36 WBC 11.3 H RBC 4.22 L Hgb 13.1 L Hct 39.0 MCV 92 MCH 31.2 MCHC 33.7 RDW 12.9 Plt Count 223 Sodium 138.7 Potassium 4.4 Chloride 102 Carbon Dioxide 26 Anion Gap 11 BUN 16 Creatinine 0.83 Est GFR ( Amer) > 60 Est GFR (Non-Af Amer) > 60 Glucose 97 Calcium 9.2 Magnesium 2.1 09/29/18 20:46 Troponin I < 0.012 Impressions: Chest/Abdomen CTA 09/29/18 20:23 IMPRESSION: Extensive right-sided pulmonary arterial acute embolism. Probable right lower lobe infarct. Assessment and Plan - Diagnosis (1) Acute pulmonary embolism without acute cor pulmonale Qualifiers: Pulmonary embolism type: unspecified Qualified Code(s): I26.99 - Other pulmonary embolism without acute cor pulmonale Is this a current diagnosis for this admission?: Yes Plan: Patient is admitted to initiate anticoagulant therapy. He will receive Lovenox 85 mg subcutaneously every 12 hours and will be started on warfarin with daily laboratory evaluations of the patient's INR. The chest pain associated with his pulmonary embolism will be treated with morphine sulfate 2 to 4 mg IV every 2 hours PRN basis via sliding scale. 09/30/2018 patient is being treated with both Lovenox and Coumadin INR was subtherapeutic this morning patient is currently on 5 mg nightly Patient has no complaints at this time 10/01/2018 patient is on Lovenox and Coumadin, PT/INR PTT are checked daily. 10/02/2018 patient's Coumadin was increased yesterday to 7.5 mg daily, INR today is 1.27 (2) Alcohol use disorder, mild, abuse Is this a current diagnosis for this admission?: No (3) Tobacco use disorder, severe, dependence Is this a current diagnosis for this admission?: No - Time Time Spent with patient: 15-24 minutes
--- NOTE | 2018-10-04 06:45 | PDOC PROGRESS REPORT ---
Subjective Progress Note for:: 10/01/18 Subjective:: 09/30/2018 patient is feeling much less short of breath than on admission. Patient states he is able to talk in full sentences. Patient is complaining of some right-sided chest wall pain. Patient was on Coumadin a couple years ago for previous PE. Patient has had 1 dose of Nubain and 1 dose of Motrin for his right-sided chest wall pain. Patient appears to be medically stable. 10/01/2018 Patient is complaining of chest wall pain with inspiration expiration or movement this is all right-sided. Patient does not appear to be hypoxic and in fact O2 sats are 99 on room air blood pressure is normal, labs are normal. Patient is currently being treated with Lovenox and Coumadin graft I have added Flexeril for the muscle spasm and tightness of his chest wall, Toradol as needed for the pain DC the Motrin. As soon is patient's INR starts to increase we will discuss discharge Reason For Visit: ACUTE PULMONARY EMBOLISM Physical Exam Vital Signs: Temp Pulse Resp BP Pulse Ox 98.9 F 78 15 121/70 99 10/01/18 08:02 10/01/18 13:45 10/01/18 08:02 10/01/18 08:02 10/01/18 08:02 Intake & Output 09/30/18 10/01/18 10/02/18 06:59 06:59 06:59 Intake Total 430 720 356 Output Total 0 Balance 430 720 356 Weight 81.2 kg 80.3 kg General appearance: PRESENT: mild distress Head exam: PRESENT: atraumatic, normocephalic Eye exam: PRESENT: conjunctiva pink, EOMI, PERRLA. ABSENT: scleral icterus Respiratory exam: PRESENT: decreased breath sounds - Primarily in the right lower lobe Cardiovascular exam: PRESENT: RRR. ABSENT: diastolic murmur, rubs, systolic murmur Neurological exam: PRESENT: alert, awake, oriented to person, oriented to place, oriented to time, oriented to situation, CN II-XII grossly intact. ABSENT: motor sensory deficit Psychiatric exam: PRESENT: appropriate affect, normal mood, other - Patient remains in good spirits, we did discuss narcotics and he still does not want to try anything stronger as far as analgesics at this time. ABSENT: homicidal ideation, suicidal ideation Results Laboratory Results: 10/01/18 04:30 10/01/18 04:30 10/01/18 10/01/18 10/01/18 04:30 04:30 09:00 WBC 8.6 RBC 4.18 L Hgb 13.1 L Hct 39.1 MCV 94 MCH 31.4 MCHC 33.6 RDW 13.0 Plt Count 235 Sodium 140.9 Potassium 4.3 Chloride 103 Carbon Dioxide 29 Anion Gap 9 BUN 15 Creatinine 0.80 Est GFR ( Amer) > 60 Est GFR (Non-Af Amer) > 60 Glucose 116 H Calcium 9.1 Magnesium 2.2 Urine Color YELLOW Urine Appearance CLEAR Urine pH 5.0 Ur Specific [place] 1.020 Urine Protein NEGATIVE Urine Glucose (UA) NEGATIVE Urine Ketones NEGATIVE Urine Blood SMALL H Urine Nitrite NEGATIVE Ur Leukocyte Esterase NEGATIVE Urine WBC (Auto) 1 Urine RBC (Auto) 1 09/29/18 20:46 Troponin I < 0.012 Impressions: Chest/Abdomen CTA 09/29/18 20:23 IMPRESSION: Extensive right-sided pulmonary arterial acute embolism. Probable right lower lobe infarct. Assessment and Plan - Diagnosis (1) Acute pulmonary embolism without acute cor pulmonale Qualifiers: Pulmonary embolism type: unspecified Qualified Code(s): I26.99 - Other pulmonary embolism without acute cor pulmonale Is this a current diagnosis for this admission?: Yes Plan: Patient is admitted to initiate anticoagulant therapy. He will receive Lovenox 85 mg subcutaneously every 12 hours and will be started on warfarin with daily laboratory evaluations of the patient's INR. The chest pain associated with his pulmonary embolism will be treated with morphine sulfate 2 to 4 mg IV every 2 hours PRN basis via sliding scale. 09/30/2018 patient is being treated with both Lovenox and Coumadin INR was subtherapeutic this morning patient is currently on 5 mg nightly Patient has no complaints at this time 10/01/2018 patient is on Lovenox and Coumadin, PT/INR PTT are checked daily. (2) Alcohol use disorder, mild, abuse Is this a current diagnosis for this admission?: Yes Plan: Alcohol use cessation has been advised. Patient will be observed closely for any signs of alcohol withdrawal. He will be treated prophylactically with Valium 5 mg orally every 8 hours for the first 3 days of his hospital course. 09/30/2018 patient has no complaints no nausea no vomiting no tremors no headache 10/01/2018 patient has not asked her anything for diet he secondary to abstinence of alcohol. Patient may be switched over to Ativan tomorrow Wednesday. (3) Tobacco use disorder, severe, dependence Is this a current diagnosis for this admission?: Yes Plan: Smoking cessation has been advised and counseled briefly. A nicotine patch will be available for the patient's use. 09/30/2018 he did not complain of nicotine withdrawal. 10/01/2018 patient has not asked for NicoDerm patch or to go outside and smoke - Time Time Spent with patient: 15-24 minutes
[2018-10-04] MEDS: ENOXAPARIN SODIUM INJ 80 MG/0.8 ML DISP.SYRIN SUBCUT SCH (09:05)
[2018-10-04] MEDS: DOCUSATE SODIUM 100 MG CAPSULE PO SCH (09:05)
[2018-10-04] MEDS: FAMOTIDINE 20 MG TABLET PO SCH (09:05)
[2018-10-04] MEDS: MAGNESIUM HYDROXIDE SUSP 30 ML UDCUP PO PRN (09:13)
[2018-10-04 12:26] VITALS: BP 120/81
--- NOTE | 2018-10-05 17:12 | PDOC DISCHARGE SUMMARY ---
General - Admit/Disc Date/PCP Admission Date/Primary Care Provider: 09/29/18 22:39 Discharge Date: 10/04/18 - Discharge Diagnosis (1) Acute pulmonary embolism without acute cor pulmonale Is this a current diagnosis for this admission?: Yes - Additional Information Resuscitation Status: Full Code Discharge Diet: As Tolerated Discharge Activity: Activity As Tolerated Prescriptions: Enoxaparin Sodium [Lovenox Inj 80 mg/0.8 ml Disp.syrin] 80 mg SUBCUT Q12 #14 disp.syrin Hydrocodone/Acetaminophen [[place] 5-325 mg Tablet] 1 tab PO Q6HP PRN #20 tablet PRN Reason: For Pain Warfarin Sodium [Coumadin 3 mg Tablet] 9 mg PO QHS #90 tablet Home Medications: Escitalopram Oxalate [Lexapro 10 mg Tablet] 10 mg PO DAILY 09/30/18 Enoxaparin Sodium [Lovenox Inj 80 mg/0.8 ml Disp.syrin] 80 mg SUBCUT Q12 #14 disp.syrin 10/04/18 Hydrocodone/Acetaminophen [[place] 5-325 mg Tablet] 1 tab PO Q6HP PRN #20 tablet 10/04/18 Warfarin Sodium [Coumadin 3 mg Tablet] 9 mg PO QHS #90 tablet 10/04/18 History of Present Illness History of Present Illness: Admitting hospitalist's H&P: EUNICE GILLESPIE is a 27 year old male who presented to the emergency room with a 1 day history of dyspnea. He admits dyspnea beginning yesterday and worsening today. The dyspnea is worsened by exertion and is associated with the development of a constant moderate to severe, sharp, right lateral ribs and costal margin area chest pain without radiation, that is worsened by inspiration. He denies other associated or accompanying symptoms. He admits a recent long car trip, to this area, on which he drove 9 consecutive hours and smoked heavily. He admits a prior similar episode when he had a pulmonary embolism 2 years ago. He denies identification of any other aggravating or ameliorating factors for his dyspnea. In the emergency room he was found to have a CTA of the chest showing a large right-sided pulmonary embolus. Patient has been hemodynamically stable throughout his ER course but, his O2 sat does fall from 98% to 93-94% with modest activity. Patient was subsequently admitted for further evaluation and treatment. Hospital Course Hospital Course: This is a 27-year-old male with prior history of DVT and PE who presented with shortness of breath and was found to have bilateral PE. Patient was started on Lovenox and was then started on Coumadin. He did continue to improve. He was easily weaned off O2 and has been saturating well and comfortable on room air. He has been ambulating well on the hallway without any issues or desaturation. We did discuss other options of treatment including NOACs but patient says that he had a lot of insurance issues and would prefer to stick to Coumadin. On day of discharge, he requested to be sent home and be bridged with Lovenox as he has to go back to [place]. He says that this was what they did with him on his first episode of VTE. When asked if he had been referred to hematology for a hypercoagulable work-up, he says that he did see a water aerobics instructor in [place] but was told they were not sure what caused it. He did say that he traveled by car from [place] for 9 hours on this recent event but did state that he already developed the chest pain prior to making the long distance road trip. Discussed in length to follow-up with his water aerobics instructor in [place] later this week to pursue a hypercoagulable work-up. He will be discharged on Coumadin and Lovenox. He will repeat an INR in 2 to 3 days and was given instructions to follow-up with PCP to determine if Lovenox can be discontinued when his INR becomes therapeutic. He verbalized understanding. Physical Exam Vital Signs: Temp Pulse Resp BP Pulse Ox 98.2 F 68 18 120/81 96 10/04/18 12:20 10/04/18 12:20 10/04/18 12:20 10/04/18 12:20 10/04/18 12:20 Intake & Output 10/03/18 10/04/18 10/05/18 06:59 06:59 06:59 Intake Total 1120 Balance 1120 Weight 178 lb 9.191 oz 179 lb 7.3 oz General appearance: PRESENT: no acute distress, well-developed, well-nourished Head exam: PRESENT: atraumatic, normocephalic Eye exam: PRESENT: conjunctiva pink, EOMI, PERRLA. ABSENT: scleral icterus Ear exam: PRESENT: normal external ear exam Mouth exam: PRESENT: moist, tongue midline Neck exam: ABSENT: carotid bruit, JVD, lymphadenopathy, thyromegaly Respiratory exam: PRESENT: clear to auscultation malou. ABSENT: rales, rhonchi, wheezes Cardiovascular exam: PRESENT: RRR. ABSENT: diastolic murmur, rubs, systolic murmur Pulses: PRESENT: normal dorsalis pedis pul GI/Abdominal exam: PRESENT: normal bowel sounds, soft. ABSENT: distended, guarding, mass, organolmegaly, rebound, tenderness Rectal exam: PRESENT: deferred Extremities exam: PRESENT: full ROM. ABSENT: calf tenderness, clubbing, pedal edema Neurological exam: PRESENT: alert, awake, oriented to person, oriented to place, oriented to time, oriented to situation, CN II-XII grossly intact. ABSENT: motor sensory deficit Results Laboratory Results: 10/02/18 04:36 10/02/18 04:36 10/04/18 05:55 Urine Color YELLOW Urine Appearance CLEAR Urine pH 6.0 Ur Specific [place] 1.015 Urine Protein NEGATIVE Urine Glucose (UA) NEGATIVE Urine Ketones NEGATIVE Urine Blood NEGATIVE Urine Nitrite NEGATIVE Ur Leukocyte Esterase NEGATIVE Urine WBC (Auto) 1 Urine RBC (Auto) 0 09/29/18 20:46 Troponin I < 0.012 Impressions: Chest/Abdomen CTA 09/29/18 20:23 IMPRESSION: Extensive right-sided pulmonary arterial acute embolism. Probable right lower lobe infarct. Qualifiers - * PATIENT BEING DISCHARGED WITH ANY OF THE FOLLOWING DIAGNOSIS: VTE (PE or DVT) VTE patient discharged on overlapping Therapy?: Yes Acute Heart Failure - Is this a Heart Failure Patient?: No LVEF < 40%?: No- if no continue to question #3 3. Anticoagulant therapy for permanect/persistent/paraoxysmal Afib or Aflutter: N/A
== END 2018-10-04 14:02 | disposition home or self-care (01) | DRG 176 ==
LOC: ER 20:04 → EH 22:39 → 4S 23:48
PROVIDERS: ADMIT Emergency Medicine; ATTEND Emergency Medicine
DX: I26.99 Other pulmonary embolism without acute cor pulmonale (principal); F17.210 Nicotine dependence, cigarettes, uncomplicated; F10.10 Alcohol abuse, uncomplicated; Z86.718 Personal history of other venous thrombosis and embolism; Z82.49 Family history of ischemic heart disease and other diseases of the circulatory system; Z80.9 Family history of malignant neoplasm, unspecified
CPT/HCPCS: 36415; 71275; 80048; 80053; 81001; 83735; 84439; 84443; 84481; 84484; 85025; 85027; 85610; 85730; 93005; 93010; 99285; J1650; J1885; J2300; J3490